=== PATIENT | female | born 1955 | race Caucasian/White ===

== ENCOUNTER → 2016-10-27 | Outpatient (CLI) | payer OTHER | END | disposition home or self-care (01) | LOC: MRI 10-25 15:00 | DX: M17.12 Unilateral primary osteoarthritis, left knee (principal); M25.562 Pain in left knee ==

== ENCOUNTER 2018-07-12 10:24 | Emergency (ER) | payer OTHER ==
[~2018-07-12] VITALS: Ht 172.7 cm; Wt 122.5 kg
== END 2018-07-12 11:20 | disposition home or self-care (01) ==
LOC: ED 10:24
DX: G89.29 Other chronic pain (principal); M54.5 Low back pain; M25.512 Pain in left shoulder

== ENCOUNTER 2018-08-10 10:43 | Emergency (ER) | payer OTHER ==
[~2018-08-10] VITALS: Ht 172.7 cm; Wt 122.5 kg
== END 2018-08-10 12:28 | disposition home or self-care (01) ==
LOC: ED 10:43
DX: G89.29 Other chronic pain (principal); M25.512 Pain in left shoulder; M25.551 Pain in right hip; M25.562 Pain in left knee; M54.5 Low back pain; E66.01 Morbid (severe) obesity due to excess calories; Z88.6 Allergy status to analgesic agent